=== PATIENT | male | born 1970 | race Two or more races ===

== ENCOUNTER 2016-10-17 21:05 | Emergency (ER) | payer MEDICAID ==
[~2016-10-17] VITALS: Ht 175.3 cm; Wt 69.8 kg
[2016-10-17 21:06] VITALS: BP 106/71
[2016-10-17] MEDS ORDERED: HYDROcodone/APAP 5/325 TABLET PO ONE (22:30)
== END 2016-10-17 22:44 | disposition home or self-care (01) ==
LOC: ED 21:45
DX: K02.9 Dental caries, unspecified (principal); E11.9 Type 2 diabetes mellitus without complications
CPT/HCPCS: 99283